=== PATIENT | male | born 1960 | race Hispanic/Latino ===

== ENCOUNTER 2023-05-31 21:21 | Inpatient (IN) | payer MEDICARE ==
[2023-05-30 11:45] VITALS: BP 144/67; PULSE 64; RESP 20
[2023-06-01] VITALS (13 sets, daily range): BP systolic 134–156; BP diastolic 54–78; PULSE 66–73; RESP 18–20; O2SAT 96–100
[2023-06-01] MEDS ORDERED: ACETAMINOPHEN 325 MG TAB PO PRN ×2 (03:00)
[2023-06-01] MEDS: LACTATED RINGERS 1000ML 1,000 ML IV SCH ×2 (03:00→11:13)
[2023-06-01] MEDS ORDERED: LACTULOSE 20 GM/30 ML UDCUP PO PRN (03:00)
[2023-06-01] MEDS ORDERED: ONDANSETRON 4MG INJ IV PRN (03:00)
[2023-06-01 05:47] LABS: BASOPHILS # (AUTO) 0.04 K/uL (0.00-0.20); BASOPHILS % (AUTO) 0.5 % (0.0-5.0); EOSINOPHILS # (AUTO) 0.21 K/uL (0.00-0.70); EOSINOPHILS % (AUTO) 2.7 % (0.0-8.0); HEMATOCRIT 41.2 % (42-54); IMMATURE GRANULOCYTE ABSOLUTE 0.02 K/uL (0-1); LYMPHOCYTES # (AUTO) 2.4 K/uL (1.0-4.8); LYMPHOCYTES % (AUTO) 31.1 % (21.0-51.0); MEAN CORPUSCULAR HEMOGLOBIN 33.5 pg (27.0-33.0); MEAN CORPUSCULAR HGB CONC 35.4 g/dL (32.0-36.0); MEAN CORPUSCULAR VOLUME 94.5 fL (79-99); MONOCYTES # (AUTO) 0.5 K/uL (0.1-1.0); NEUTROPHILS # (AUTO) 4.5 K/uL (1.8-7.7); NEUTROPHILS % (AUTO) 58.4 % (40.0-77.0); PLATELET COUNT (AUTO) 178 K/uL (130-400); RED BLOOD CELL COUNT(AUTO) 4.36 MIL/uL (4.50-6.20); RED CELL DISTRIBUTION WIDTH 11.8 % (11.0-15.5); WHITE BLOOD COUNT (AUTO) 7.7 K/uL (4.8-10.8)
[2023-06-01] MEDS: INSULIN HUMULIN R 100 UNIT/ML 3ML SQ SCH ×4 (06:00→20:56)
[2023-06-01 06:14] LABS: B-TYPE NATRIURETIC PEPTIDE 305 pg/mL (0-100)
[2023-06-01 06:20] LABS: HEMOGLOBIN A1C 5.9 % (4.0-6.0)
[2023-06-01 06:22] LABS: BILIRUBIN,TOTAL 0.6 mg/dL (0.2-1.0); POTASSIUM 3.9 mmol/L (3.5-5.1); TOTAL PROTEIN, SERUM 6.7 g/dL (6.0-8.3)
[2023-06-01] MEDS ORDERED: LIDOCAINE HCL 400MG/20ML VIAL ONE (08:47)
[2023-06-01] MEDS ORDERED: IOHEXOL-350 50ML VIAL IV ONE (08:48)
[2023-06-01] MEDS ORDERED: HEPARIN 10,000 UNIT/10ML (1,000 UNIT/ML) VIAL ONE (08:48)
[2023-06-01] MEDS ORDERED: IOHEXOL 350 MG/ML 100ML INFUS..BTL IV ONE (08:48)
[2023-06-01] MEDS ORDERED: VERAPAMIL HCL 2.5 MG/ML VIAL ONE (08:48)
[2023-06-01] MEDS ORDERED: NITROGLYCERIN 50MG VIAL ONE (08:50)
[2023-06-01] MEDS ORDERED: NITROGLYCERIN 50MG/D5W 250ML 1 BOT ONE (08:52)
[2023-06-01] MEDS: FAMOTIDINE 20MG VIAL IV SCH ×2 (09:00→20:34)
[2023-06-01] MEDS ORDERED: MIDAZOLAM HCL 1 MG/ML 2ML VIAL ONE ×2 (09:09→09:39)
[2023-06-01] MEDS ORDERED: FENTANYL CITRATE PF 50 MCG/1 ML 2ML VIAL ONE (09:09)
[2023-06-01] MEDS ORDERED: TICAGRELOR 90 MG TABLET ONE (09:34)
[2023-06-01] MEDS ORDERED: EPTIFIBATIDE 75MG/100ML BOTTLE 100 ML IV ONE (09:37)
[2023-06-01] MEDS ORDERED: EPTIFIBATIDE 2 MG/ML 10 ML VIAL IVP ONE (09:37)
[2023-06-01] MEDS ORDERED: DEXTROSE 50%-WATER 50 ML DISP.SYRIN IV PRN (11:00)
[2023-06-01] MEDS ORDERED: 0.9%NACL 1000ML 1,000 ML IV SCH (11:00)
[2023-06-01] MEDS ORDERED: GLUCAGON 1MG KIT 1 MG ML IM PRN (11:00)
[2023-06-01] MEDS: ASPIRIN 81 MG EC TAB PO SCH (11:04)
[2023-06-01] MEDS: TICAGRELOR 90 MG TABLET PO SCH (20:34)
[2023-06-01] MEDS: CARVEDILOL 6.25 MG TABLET PO SCH (20:36)
[2023-06-01] MEDS ORDERED: ATORVASTATIN 40 MG TABLET PO SCH (21:00)
[2023-06-02 04:14] VITALS: BP 139/68; PULSE 72; RESP 18
[2023-06-02] MEDS: LACTATED RINGERS 1000ML 1,000 ML IV SCH (05:40)
[2023-06-02] MEDS: INSULIN HUMULIN R 100 UNIT/ML 3ML SQ SCH (06:00)
[2023-06-02 07:15] VITALS: O2SAT 100
[2023-06-02 08:00] VITALS: BP 136/58; PULSE 67; RESP 16
[2023-06-02 08:52] VITALS: BP 136/58
[2023-06-02] MEDS: TICAGRELOR 90 MG TABLET PO SCH (08:52)
[2023-06-02] MEDS: CARVEDILOL 6.25 MG TABLET PO SCH (08:52)
[2023-06-02] MEDS: FAMOTIDINE 20MG VIAL IV SCH (08:53)
[2023-06-02] MEDS: ASPIRIN 81 MG EC TAB PO SCH (08:53)
[2023-06-02] MEDS ORDERED: AEC81 PO (09:25)
[2023-06-02] MEDS ORDERED: NITR0.4T50 SL (09:25)
[2023-06-02] MEDS ORDERED: TICA90TA PO (09:25)
[2023-06-02] MEDS ORDERED: ATOR40TA69 PO (09:25)
[2023-06-02] MEDS ORDERED: CARV6.2579 PO (09:25)
[2023-06-02] MEDS ORDERED: NICO-704 TD (09:51)
== END 2023-06-02 10:15 | disposition home or self-care (01) | DRG 321 ==
LOC: 2AH 23:24
PROVIDERS: ADMIT Internal Medicine; ATTEND Internal Medicine
PROC: 027037Z Dilation of Coronary Artery, One Artery with Four or More Drug-eluting Intraluminal Devices, Percutaneous Approach (ICD-10-PCS; principal; 2023-06-01)
PROC: 4A023N7 Measurement of Cardiac Sampling and Pressure, Left Heart, Percutaneous Approach (ICD-10-PCS; 2023-06-01)
PROC: B2111ZZ Fluoroscopy of Multiple Coronary Arteries using Low Osmolar Contrast (ICD-10-PCS; 2023-06-01)
DX: I21.4 Non-ST elevation (NSTEMI) myocardial infarction (principal); I10 Essential (primary) hypertension; E78.5 Hyperlipidemia, unspecified; E11.9 Type 2 diabetes mellitus without complications; F17.200 Nicotine dependence, unspecified, uncomplicated; I25.10 Atherosclerotic heart disease of native coronary artery without angina pectoris; F19.90 Other psychoactive substance use, unspecified, uncomplicated; R06.03 Acute respiratory distress
CPT/HCPCS: 36415; 71045; 80053; 80061; 82948; 83036; 83735; 83880; 84484; 85025; 85347; 85730; 93005; 93306; 93356; 93458; 99156; 99157; C1769; C1887; C9600; G0378; J1327; J1644; J1815; J2250; J3010; J3490; Q9967; C1725; C1874; C1894; Q9965